=== PATIENT | male | born 1960 | race American Indian/Alaskan Native ===

== ENCOUNTER 2016-08-28 14:14 | Emergency (ER) | payer MEDICARE ==
[2016-08-28 14:25] VITALS: BMI 30.7
[2016-08-28 14:35] VITALS: BP 154/75; PULSE 69; RESP 18; TEMP 97.4; O2SAT 100
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
[2016-08-28 14:56] LABS: ADD MANUAL DIFF? NO
[2016-08-28 15:01] LABS: BASO # 0.11 K/mm3 (0.0-2.0); BASO % 0.9 % (0.0-3.0); EOS % 0.3 % (1.5-5.0); GRAN # 8.67 (1.4-6.5); GRAN % 73.4 % (50.0-68.0); HEMATOCRIT 45.8 % (42.0-52.0); LYMPH # 1.9 (1.2-3.4); LYMPH % 16.4 % (22.0-35.0); MEAN CELL VOLUME 82.8 fL (80.0-105.0); MEAN CORPUSCULAR HEMOGLOBIN 28.8 pg (25.0-35.0); MEAN CORPUSCULAR HGB CONC 34.7 g/dl (31.0-37.0); MEAN PLATELET VOLUME 12.1 fl (7.0-11.0); MONO # 1.1 (0.1-0.6); PLATELET COUNT 189 10^3/uL (120.0-450.0); WHITE BLOOD COUNT 11.8 10^3/ul (4.5-11.0)
[2016-08-28 15:10] LABS: ALB/GLOB RATIO 1.3 (1.1-1.8); ALKALINE PHOSPHATASE 131 U/L (38-133); ALT/SGPT 56 U/L (7-56); AST/SGOT 60 U/L (15-59); BILIRUBIN,TOTAL 0.9 mg/dL (0.2-1.3); BLOOD UREA NITROGEN 11 mg/dL (7-21); CALCIUM 9.7 mg/dL (8.4-10.5); CARBON DIOXIDE 21 mmol/L (21-33); CHLORIDE 107 mmol/L (98-107); GFR AFRICAN-AMERICAN > 60; GLUCOSE,RANDOM 220 mg/dL (70-110); MAGNESIUM 1.6 mg/dL (1.7-2.2); POTASSIUM 3.7 mmol/L (3.6-5.0); SODIUM 142 mmol/L (132-148); TOTAL PROTEIN 7.4 g/dL (5.8-8.3)
[2016-08-28 15:21] LABS: TROPONIN I 0.03 ng/mL
[2016-08-28 15:23] LABS: INR 1.06 (0.93-1.08); PARTIAL THROMBOPLASTIN TIME 24.3 Seconds (23.7-30.8)
--- NOTE | 2016-08-29 07:51 | RAD ---
HISTORY: near sycnope COMPARISON: No prior. FINDINGS: LUNGS: No active pulmonary disease. PLEURA: No significant pleural effusion identified, no pneumothorax apparent. CARDIOVASCULAR: Normal. OSSEOUS STRUCTURES: No significant abnormalities. VISUALIZED UPPER ABDOMEN: Normal. OTHER FINDINGS: None. IMPRESSION: No active disease.
--- NOTE | 2016-08-29 18:57 | CARD ---
APPROVED REPORT EKG Measurement Heart [id number] <Conclusion> Sinus arrhythmia Left axis deviation Incomplete right bundle branch block Anteroseptal infarct, age undetermined Abnormal ECG
== END 2016-08-28 15:28 | disposition left against medical advice (07) ==
LOC: ED 14:14
DX: R55 Syncope and collapse (principal); I48.91 Unspecified atrial fibrillation